=== PATIENT | female | born 1970 | race Caucasian/White ===

== ENCOUNTER 2020-11-07 20:51 | Emergency (ER) | payer SELFPAY ==
[~2020-11-07] VITALS: Ht 162.6 cm; Wt 75.8 kg
--- NOTE | 2020-11-07 20:54 | PHYS DOC ---
Past History Past Medical History: Cancer, GERD General Adult HPI: HPI: ".. I was diagnosis of colon and esophageal cancer in 2019 by EGD and colonoscopic evaluations.. I ve not really followed up... I was living in [place].. and then moved to [place] I was seen at [facility] [place].. but they told me to get insurance .. Medicare or something .. but I never did.. then moved out of the state.. I recently moved back to [facility].. and living in [place] now.. I come in tonight because of nausea and vomiting.. and some diarrhea.. I think I may be dehydrated.. I was at [facility] with my sister this afternoon.. but decided to get checked out tonight..." Patient is a 50 year old female who presents with above hx and complaints nausea, vomiting, constipation and diarrhea with a hx of colon and esophageal cancer. Patient has not followed up her cancer since 2019. Recent travel from [place] on moved back to this area. Patient previously lived in [place]. Now establish residency on [place]. No history immunosuppression. Significant history of noncompliance with treatment regimens. Has been seen previous at [facility]. And [facility]. No history of bad food intake. Reportedly had a normal stool today other than he had some bright red blood. Patient has had problems with constipation. Review of Systems: Review of Systems: Constitutional: Denies fever or chills Eyes: Denies change in visual acuity HENT: Denies nasal congestion or sore throat Respiratory: Denies cough or shortness of breath Cardiovascular: Denies chest pain or edema GI: Complains of abdominal pain, nausea, vomiting, and constipation. Has had bright red blood in stool. Patient reports some episodes of diarrhea diarrhea : Denies dysuria Musculoskeletal: Denies back pain or joint pain Integument: Denies rash Neurologic: Denies headache, focal weakness or sensory changes Endocrine: Denies polyuria or polydipsia Lymphatic: Denies swollen glands Psychiatric: Denies depression or anxiety Family History: Family History: Noncontributory to presentation Current Medications: Current Meds: See nursing for home meds Allergies: Allergies: No known drug allergies Physical Exam: PE: Constitutional: Moderate acute distress, non-toxic appearance. [] HENT: Normocephalic, atraumatic, bilateral external ears normal, oropharynx moist, no oral exudates, nose normal. [] Eyes: PERRLA, EOMI, conjunctiva normal, no discharge. [] Neck: Normal range of motion, no tenderness, supple, no stridor. [] Cardiovascular: Tachycardia heart rate regular rhythm, no murmur. Bedside monitor [ shows a sinus tach cardia Lungs & Thorax: Bilateral breath sounds clear to auscultation [] Abdomen: Bowel sounds normal, soft, mild generalized tenderness, no masses, no pulsatile masses. Distended. No gross outlet bleeding noted. No specific area of rebound. Skin: Warm, dry, no erythema, no rash. [] Back: No tenderness, no CVA tenderness. [] Extremities: No tenderness, no cyanosis, no clubbing, ROM intact, no edema. No psoas sign. No cording. Neurologic: Alert and oriented X 3, normal motor function, normal sensory function, no focal deficits noted. [] Psychologic: Affect anxious, judgement normal, mood normal. [] EKG: EKG: My interpretation EKG shows a sinus rhythm at 104 bpm. No acute morphology. [] Radiology/Procedures: Radiology/Procedures: [address] [address] IMAGING REPORT Signed PATIENT: KAYLYN ALVARADO AACCOUNT: [id number] : 1970 LOCATION: ER AGE: 50 SEX: F EXAM STATUS: REG ER ORD. PHYSICIAN: MABEL RODRIGUEZ MD REASON: abdomen pain, it colon and esophageal cancer. PROCEDURE: CT ABD PELV W/ORAL&IV CONTRAST CT ABDOMEN+PELVIS W History: Reason: abdomen pain, it colon and esophageal cancer. Technique: After the administration of intravenous contrast, CT imaging was performed of the abdomen and pelvis. Multiplanar images are reviewed. Exposure: One or more of the following individualized dose reduction techniques were utilized for this examination: 1. Automated exposure control 2. Adjustment of the mA and/or kV according to patient size 3. Use of iterative reconstruction technique. Comparison: None Findings: Lower chest: No consolidation or pleural effusion. Abdomen and pelvis: Hepatic steatosis. The liver, spleen, and pancreas are unremarkable. Prior cholecystectomy. No biliary ductal dilatation. Patent portal veins. No hydronephrosis. No renal calculi. Normal urinary bladder. Descending and sigmoid colonic wall thickening as well as thickening of the rectum. Fluid stool throughout the colon. Normal appendix. No evidence of bowel obstruction. Oral contrast opacifies to the level of the colon. Multiple mildly prominent mesenteric lymph nodes. No ascites. Prior hysterectomy. Bones: No pathologic osseous lesions. Impression: 1. Descending and sigmoid colonic wall thickening as well as rectal wall thickening with fluid stool throughout the colon. Findings may relate to colitis. Recommend follow-up. 2. Hepatic steatosis. Electronically signed by: Ian Ascencio DO (11/08/2020 2:40 AM) [facility] DICTATED AND SIGNED BY: IAN ASCENCIO DO DATE: 11/08/20 3639 CC: MABEL RODRIGUEZ MD; PCP,NO ~MTH0 [address] [address] IMAGING REPORT Signed PATIENT: KAYLYN ALVARADO AACCOUNT: [id number] : 1970 LOCATION: ER AGE: 50 SEX: F EXAM STATUS: REG ER ORD. PHYSICIAN: MABEL RODRIGUEZ MD REASON: n, v, d, hx of colon and gloria. cancer PROCEDURE: ACUTE ABDOMEN SERIES EXAM: Frontal view of the chest, AP views of the abdomen in upright and supine positions. CLINICAL INDICATION: Reason: n, v, d, hx of colon and gloria. cancer / Spl. Instructions: / History: COMPARISON: None. FINDINGS and IMPRESSION: The heart is not enlarged. Mediastinal and hilar contours are normal. No focal parenchymal airspace opacity. No pleural effusion or pneumothorax. No abnormal small or large bowel dilatation. Moderate colonic stool content. No abnormal soft tissue mass effect. No suspicious calcifications are seen. No free intraperitoneal gas. Cholecystectomy clips are seen. Electronically signed by: Horacio Jain MD (11/07/2020 11:08 PM) [facility] DI[facility]ATED AND SIGNED BY: HORACIO JAIN MD DATE: 11/07/20 5735 CC: MABEL RODRIGUEZ MD; PCP,NO ~MTH0 0 [][address] [address] IMAGING REPORT Signed SSION: The heart is not enlarged. Mediastinal and hilar contours are normal. No focal parenchymal airspace opacity. No pleural effusion or pneumothorax. No abnormal small or large bowel dilatation. Moderate colonic stool content. No abnormal soft tissue mass effect. No suspicious calcifications are seen. No free intraperitoneal gas. Cholecystectomy clips are seen. Electronically signed by: Horacio Jain MD (11/07/2020 11:08 PM) [facility] DICTATED AND SIGNED BY: HORACIO JAIN MD DATE: 11/07/20 0714 CC: MABEL RODRIGUEZ MD; PCP,NO ~MTH0 0 Heart Score: C/O Chest Pain: N/A Risk Factors: Risk Factors: DM, Current or recent (<one month) smoker, HTN, HLP, family history of CAD, obesity. Risk Scores: Score 0 - 3: 2.5% MACE over next 6 weeks - Discharge Home Score 4 - 6: 20.3% MACE over next 6 weeks - Admit for Clinical Observation Score 7 - 10: 72.7% MACE over next 6 weeks - Early Invasive Strategies Course & Med Decision Making: Course & Med Decision Making Pertinent Labs and Imaging studies reviewed. (See chart for details) Pt. to stay on clear fluid diet x 24- 48 hrs. No solids or milk products. Follow up with oncology and GI. Ct. does show wall thicken of colon.. Consider repeat GI eval and make plans on follow up options after discussion with primary. No acute electrolytes abnormalities note tonight.l Impression: 1. Abdomen pain 2. Nausea and vomiting and diarrhea 3. History of esophageal and colon cancer-diagnosis 2018 4. Constipation 5. Hx. of Outlet rectal bleeding [] Dragon Disclaimer: Dragon Disclaimer: This electronic medical record was generated, in whole or in part, using a voice recognition dictation system. Departure Departure: Referrals: PCP,NO (PCP) Dragon Disclaimer This chart was dictated in whole or in part using Voice Recognition software in a busy, high-work load, and often noisy Emergency Department environment. It may contain unintended and wholly unrecognized errors or omissions. MABEL RODRIGUEZ MD Nov 07, 2020 20:54
[2020-11-07] MEDS ORDERED: IV RINGERS SOLUTION,LACTATED 1,000 ML IV SCH (22:30)
[2020-11-07] MEDS ORDERED: ONDANSETRON PF 4 MG/2 ML VIAL. IVP ONE (23:00)
[2020-11-07] MEDS ORDERED: KETOROLAC 30 MG/ML VIAL. IVP ONE (23:00)
[2020-11-07] MEDS ORDERED: FAMOTIDINE 20 MG/2 ML VIAL IVP ONE (23:00)
--- NOTE | 2020-11-07 23:10 | RAD ---
EXAM: Frontal view of the chest, AP views of the abdomen in upright and supine positions. CLINICAL INDICATION: Reason: n, v, d, hx of colon and gloria. cancer / Spl. Instructions: / History: COMPARISON: None. FINDINGS and IMPRESSION: The heart is not enlarged. Mediastinal and hilar contours are normal. No focal parenchymal airspace o pacity. No pleural effusion or pneumothorax. No abnormal small or large bowel dilatation. Moderate colonic stool content. No abnormal soft tissu e mass effect. No suspicious calcifications are seen. No free intraperitoneal gas. Cholecystectomy clips are seen. Electronically signed by: Horacio Fuentes MD (11/07/2020 11:08 PM) [facility]
[2020-11-07 23:11] LABS: BASO # 0.1 x10^3/uL (0.0-0.2); BASO % 1 % (0-3); EOS # 0.1 x10^3/uL (0.0-0.7); EOS % 1 % (0-3); HEMOGLOBIN 15.5 g/dL (12.0-15.5); LYMPH # 1.6 x10^3/uL (1.0-4.8); LYMPH % 18 % (24-48); MEAN CORPUSCULAR HEMOGLOBIN 30 pg (25-35); MEAN CORPUSCULAR HGB CONC 34 g/dL (31-37); MEAN CORPUSCULAR VOLUME 86 fL (79-100); MONO # 0.5 x10^3/uL (0.0-1.1); MONO % 5 % (0-9); NEUT # 6.7 x10^3uL (1.8-7.7); NEUT % 75 % (31-73); PLATELET COUNT 287 x10^3/uL (140-400); RED BLOOD COUNT 5.24 x10^6/uL (3.50-5.40); RED CELL DISTRIBUTION WIDTH 13.3 % (11.5-14.5)
[2020-11-07 23:19] LABS: CALCIUM 9.6 mg/dL (8.5-10.1); CREATININE 0.8 mg/dL (0.6-1.0); GFR 76.2; POTASSIUM 3.9 mmol/L (3.5-5.1)
[2020-11-07 23:29] LABS: ALBUMIN 4.5 g/dL (3.4-5.0); DIRECT BILIRUBIN 0.2 mg/dL (0.0-0.2); TOTAL BILIRUBIN 1.1 mg/dL (0.2-1.0); TOTAL PROTEIN 8.1 g/dL (6.4-8.2)
[2020-11-07] MEDS ORDERED: MAGNESIUM HYDROXIDE 2,400 MG/30 ML ORAL.SUSP. PO ONE (23:45)
[2020-11-08] MEDS ORDERED: CONTRAST GIVEN. MC PRN (01:00)
[2020-11-08 01:18] LABS: BARBITURATES NEG (NEG); BENZODIAZEPINES NEG (NEG); CANNABINOIDS POS (NEG); COCAINE NEG (NEG); METHADONE NEG (NEG); OPIATES NEG (NEG); PHENCYCLIDINE NEG (NEG)
[2020-11-08 01:19] LABS: AMPHETAMINE/METHAMPHETAMINE NEG (NEG)
[2020-11-08 01:30] LABS: BACTERIA,URINE FEW /HPF (0-FEW); BILIRUBIN,URINE NEG (NEG); CLARITY,URINE HAZY; COLOR,URINE YELLOW; GLUCOSE,URINE NEG (NEG); NITRITE,URINE NEG (NEG); RBC,URINE 0 /HPF (0-2); SQUAMOUS EPITHELIAL CELL,UR FEW /LPF; UROBILINOGEN,URINE 0.2 mg/dL (0.2 mg/dL)
[2020-11-08] MEDS ORDERED: IOHEXOL 300 MG/ML 75 ML VIAL. IV ONE (01:30)
[2020-11-08] MEDS ORDERED: IOHEXOL 240 MG/ML 50ML VIAL. PO ONE (01:30)
--- NOTE | 2020-11-08 02:43 | RAD ---
CT ABDOMEN+PELVIS W History: Reason: abdomen pain, it colon and esophageal cancer. Technique: After the administration of intravenous contrast, CT imaging was performed of the abdomen and pelvis. Multiplanar images are reviewed. Exposure: One or more of the following individualized dose reduction techniques were utilized for thi s examination: 1. Automated exposure control 2. Adjustment of the mA and/or kV according to patient size 3. Use of iterative reconstruction technique. Comparison: None Findings: Lower chest: No consolidation or pleural effusion. Abdomen and pelvis: Hepatic steatosis. The liver, spleen, and pancreas are unremarkable. Prior cholec ystectomy. No biliary ductal dilatation. Patent portal veins. No hydronephrosis. No renal calculi. No rmal urinary bladder. Descending and sigmoid colonic wall thickening as well as thickening of the rectum. Fluid stool throu ghout the colon. Normal appendix. No evidence of bowel obstruction. Oral contrast opacifies to the le nataliya of the colon. Multiple mildly prominent mesenteric lymph nodes. No ascites. Prior hysterectomy. Bones: No pathologic osseous lesions. Impression: 1. Descending and sigmoid colonic wall thickening as well as rectal wall thickening with fluid stool throughout the colon. Findings may relate to colitis. Recommend follow-up. 2. Hepatic steatosis. Electronically signed by: Ian Ascencio DO (11/08/2020 2:40 AM) [facility]
[2020-11-08 03:07] VITALS: BP 110/62
--- NOTE | 2020-11-08 04:08 | EKG ---
[facility] ED [facility] [place] [id number] Test Date: 2020-11-07 Test Time: 23:12:18 Pat Name: KAYLYN ALVARADO Department: Room: Gender: F Career Based Intervention Coordinator: ALPHONSO : 1970 Requested By: MABEL RODRIGUEZ Order Number: [id number] Reading MD: Measurements Intervals [place] Rate: 104 P: 22 [place]: 170 QRS: 32 QRSD: 80 T: 24 QT: 318 QTc: 418 Interpretive Statements SINUS TACHYCARDIA OTHERWISE NORMAL ECG RI6.02 No previous ECG available for comparison
== END 2020-11-08 03:10 | disposition home or self-care (01) ==
LOC: ER 20:51
DX: K59.00 Constipation, unspecified (principal); R11.2 Nausea with vomiting, unspecified; R19.7 Diarrhea, unspecified; K21.9 Gastro-esophageal reflux disease without esophagitis; Z85.038 Personal history of other malignant neoplasm of large intestine
CPT/HCPCS: 36415; 74022; 74177; 80048; 80076; 80307; 81001; 82150; 82550; 83690; 84484; 85025; 87086; 93005; 96361; 96374; 96375; 99285; J1885; J2405; J3490; J7120; Q9966; Q9967